=== PATIENT | female | born 1950 | race Caucasian/White ===

== ENCOUNTER → 2017-02-17 | Outpatient (CLI) | payer OTHER, MEDICARE ==
[~2017-02-17] MED LIST: ACET-749 PO; ADVIN25/60 INH; ASPI-461 PO; CYCL5TAB PO; DOCU100C PO; FLUT0.0529 NAE; FURO-85 PO; GLIP10TA3 PO; INSDGI PO; IPRA1AER2 INH; LISI-729 PO; LPT40 PO; METF-384 PO; POTA10CA28 PO; PRED20TA PO; PRLSR20 PO; ROPI0.5T15 PO
--- NOTE | 2017-02-18 07:53 | MAMMOGRAPHY REPORT ---
BILATERAL DIGITAL SCREENING MAMMOGRAM TOMOSYNTHESIS WITH CAD: 02/17/2017 CLINICAL HISTORY: Routine screening. Patient has no complaints. TECHNIQUE: Breast tomosynthesis in addition to standard 2D mammography was performed. Current study was also evaluated with a Computer Aided Detection (CAD) system. COMPARISON: Comparison is made to exams dated: 12/14/2013 mammogram, 11/15/2012 mammogram, 03/19/2011 justin mogram, 03/18/2010 mammogram, 02/13/2009 mammogram, and 03/01/1998 mammogram - [facility]. BREAST COMPOSITION: The tissue of both breasts is almost entirely fatty. FINDINGS: A 5 mm focal asymmetry in the 11:00 to 12:00 left breast is unchanged on prior mammograms d ating back to at least 02/13/2009, therefore likely benign. There are a few scattered benign punctat e microcalcifications bilaterally. No suspicious mass, architectural distortion or cluster of microc alcifications is seen. IMPRESSION: ACR BI-RADS CATEGORY 1: NEGATIVE There is no mammographic evidence of malignancy. A 1 year screening mammogram is recommended. The pa tient will receive written notification of the results. Approximately 10% of breast cancers are not detected with mammography. A negative mammographic report should not delay biopsy if a clinically suggestive mass is present. Evelyn Sabillon M.D. ay/:02/17/2017 16:07:10 Change Management Facilitator: Mile RAY)([place]), [facility] letter sent: Normal 1/2 BI-RADS Code: ACR BI-RADS Category 1: Negative
== END | disposition home or self-care (01) ==
LOC: C.MAMM 14:49
PROVIDERS: ATTEND Internal Medicine
DX: Z12.31 Encounter for screening mammogram for malignant neoplasm of breast (principal)